=== PATIENT | male | born 2000 | race Caucasian/White ===

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

== ENCOUNTER 2019-11-05 14:01 | Emergency (ER) | payer OTHER ==
[~2019-11-05] VITALS: Ht 170.2 cm; Wt 88.0 kg
[2019-11-05] MEDS ORDERED: ACETAMINOPHEN 500 MG TABLET PO ONE (14:15)
[2019-11-05 14:18] VITALS: BP 133/70
--- NOTE | 2019-11-05 14:50 | RAD ---
PORTABLE CHEST 1V 11/05/2019 2:13 PM INDICATION: Fever, Covid COMPARISON: None available TECHNIQUE: Portable frontal view of the chest is provided. FINDINGS: The cardiomediastinal silhouette is within normal limits. Lungs are clear. There are no significant pleural effusions. There is no pulmonary vascular congestion. No pneumothorax. No suspicious osseous abnormality. IMPRESSION: There is no acute cardiopulmonary process. Electronically signed by: Leatha Wing MD (11/05/2019 2:47 PM) [facility]
--- NOTE | 2019-11-05 15:08 | PHYS DOC ---
Past Medical History Past Medical History: No Pertinent History Past Surgical History: No Surgical History Smoking Status: Current Every Day Smoker Alcohol Use: None Drug Use: None General Adult EDM: Chief Complaint: COUGH HPI: HPI: Patient is a 18 year old male who presents to the ED today concerned he has COVID19. Patient reports having a cough and sore throat for couple days. Patient reports he works at [employer], his temperature was taken multiple times and was reading at 101.8. He states he was given ice cubes to chew on and sent to urgent care. He states he went to urgent care he states they did a strep swab which was negative but they could not test him for COVID19 so they sent him to the ED. Patient reports living with the grandmother and very concerned about COVID19 and would like to be tested. Review of Systems: Review of Systems: Constitutional: Reports fever Eyes: Denies change in visual acuity. [] HENT: Reports sore throat. Denies nasal congestion Respiratory: Reports cough, denies shortness of breath. [] Cardiovascular: Denies chest pain or edema. [] GI: Denies abdominal pain, nausea, vomiting, bloody stools or diarrhea. [] : Denies dysuria. [] Musculoskeletal: Denies back pain or joint pain. [] Integument: Denies rash. [] Neurologic: Denies headache, focal weakness or sensory changes. [] Psychiatric: Denies depression or anxiety. [] Heart Score: Risk Factors: Risk Factors: DM, Current or recent (<one month) smoker, HTN, HLP, family history of CAD, obesity. Risk Scores: Score 0 - 3: 2.5% MACE over next 6 weeks - Discharge Home Score 4 - 6: 20.3% MACE over next 6 weeks - Admit for Clinical Observation Score 7 - 10: 72.7% MACE over next 6 weeks - Early Invasive Strategies Current Medications: Current Medications Medications (Trade) Dose Ordered Sig/Vannesa Start Time Stop Time Status Last Admin Dose Admin Acetaminophen (Tylenol) 1,000 mg 1X ONCE 11/05/19 14:15 11/05/19 14:18 DC 11/05/19 14:25 1,000 MG Allergies: Allergies: Allergies Coded Allergies Type Severity Reaction Last Updated Verified Penicillins Allergy Intermediate 09/16/15 Yes amoxicillin Allergy Intermediate 09/16/15 Yes ampicillin Allergy Intermediate 09/16/15 Yes Physical Exam: PE: Constitutional: Well developed, well nourished, no acute distress, non-toxic appearance. [] HENT: Normocephalic, atraumatic, bilateral external ears normal, oropharynx moist, no oral exudates, nose normal. [] Eyes: PERRLA, EOMI, conjunctiva normal, no discharge. [] Neck: Normal range of motion, no tenderness, supple, no stridor. [] Cardiovascular:Heart rate regular rhythm, no murmur [] Lungs & Thorax: Bilateral breath sounds clear to auscultation [] Abdomen: Bowel sounds normal, soft, no tenderness, no masses, no pulsatile masses. [] Skin: Warm, dry, no erythema, no rash. [] Back: No tenderness, no CVA tenderness. [] Extremities: No tenderness, no cyanosis, no clubbing, ROM intact, no edema. [] Neurologic: Alert and oriented X 3, normal motor function, normal sensory function, no focal deficits noted. [] Psychologic: Affect normal, judgement normal, mood normal. [] Current Patient Data: Vital Signs: Vital Signs Date Time Temp Pulse Resp B/P (MAP) Pulse Ox O2 Delivery O2 Flow Rate FiO2 11/05/19 14:18 98.8 77 18 133/70 (91) 98 Room Air 98.8 EKG: EKG: [] Radiology/Procedures: Radiology/Procedures: []PROCEDURE: PORTABLE CHEST 1V PORTABLE CHEST 1V 11/05/2019 2:13 PM INDICATION: Fever, Covid COMPARISON: None available TECHNIQUE: Portable frontal view of the chest is provided. FINDINGS: The cardiomediastinal silhouette is within normal limits. Lungs are clear. There are no significant pleural effusions. There is no pulmonary vascular congestion. No pneumothorax. No suspicious osseous abnormality. IMPRESSION: There is no acute cardiopulmonary process. Electronically signed by: Michael Wing MD (11/05/2019 2:47 PM) [facility] DICTATED and SIGNED BY: MICHAEL WING MD DATE: 11/05/19 1441 Course & Med Decision Making: Course & Med Decision Making Pertinent Labs and Imaging studies reviewed. (See chart for details) This is a 18-year-old male patient presented to the ED today with COVID19 concern. Patient also had a fever that was documented at work at 101.8, see HPI. He is also complaining of a sore throat. Negative rapid strep was done at urgent care. He is afebrile in the ED. Chest x-ray is negative. COVID19 testing was done. Recommended patient to be quarantined for 14 days. He will be called with his results. Jack Disclaimer: Jack Disclaimer: This electronic medical record was generated, in whole or in part, using a voice recognition dictation system. COVID-19 Patient Risks: Age 65 or older: No Sign of co-morbidity: No Exp to person + for COVID: No Exp to PUI: No Travel from affected area: No Lower respiratory symptoms: Yes Fever: Yes Other: No PPE Use: Full PPE with N95 mask or PAPR: Yes Departure Departure Impression: Primary Impression: Fever Qualified Codes: R50.9 - Fever, unspecified Additional Impressions: Pharyngitis, acute Qualified Codes: J02.9 - Acute pharyngitis, unspecified Cough Person under investigation for COVID-19 Disposition: 01 HOME, SELF-CARE Condition: STABLE Referrals: JIM LAW MD (PCP) follow up in 2 weeks Patient Instructions: Cough, Adult, [id number], Fever, Adult Additional Instructions: You were tested for COVID19. You will stay on quarantine for 14 days or until your test for COVID19 is negative. Please take Tylenol as needed for fever or pain. Your chest x-ray in the emergency room is negative for any acute findings. Follow-up with your own doctor in 2 weeks. Come back to the ED at any point symptoms worsen. Justicifation of Admission Dx: Justifications for Admission: Justification of Admission Dx: N/A FLOR YUEN SENIOR PORTFOLIO ANALYST Nov 05, 2019 15:08
== END 2019-11-05 15:15 ==
LOC: ER 14:01
DX: J02.9 Acute pharyngitis, unspecified (principal); Z20.828 Contact with and (suspected) exposure to other viral communicable diseases; R50.9 Fever, unspecified; R05 Cough; F17.200 Nicotine dependence, unspecified, uncomplicated; Z88.0 Allergy status to penicillin; Z88.1 Allergy status to other antibiotic agents
CPT/HCPCS: 36415; 71045; 99284; U0003

== ENCOUNTER 2020-07-02 18:31 | Emergency (ER) | payer OTHER ==
[~2020-07-02] VITALS: Ht 170.2 cm; Wt 80.3 kg
[2020-07-02 18:46] LABS: BILIRUBIN,URINE NEGATIVE (NEG); CLARITY,URINE CLEAR; COLOR,URINE YELLOW; NITRITE,URINE NEGATIVE (NEG); PH,URINE 6.5 (<5.0-8.0); PROTEIN,URINE NEGATIVE (NEG-TRACE)
[2020-07-02 18:54] LABS: BARBITURATES NEG (NEG); BENZODIAZEPINES NEG (NEG); CANNABINOIDS POS (NEG); COCAINE NEG (NEG); METHADONE NEG (NEG); OPIATES NEG (NEG); PHENCYCLIDINE NEG (NEG)
[2020-07-02 18:58] LABS: AMPHETAMINE/METHAMPHETAMINE NEG (NEG)
[2020-07-02 19:03] LABS: BACTERIA,URINE FEW /HPF (0-FEW)
--- NOTE | 2020-07-02 19:15 | ED.ADGEN ---
Past Medical History Past Medical History: No Pertinent History Past Surgical History: No Surgical History Smoking Status: Current Every Day Smoker Alcohol Use: None Drug Use: None General Adult EDM: Chief Complaint: MEDICAL CLEARANCE HPI: HPI: Patient is a 19 year old male coming in for medical clearance that he can go to [facility] rehab facility. Patient states he has been using chavo lucinogens heavily, such as mushrooms and LSD. Denies any other drug use other than marijuana. Last use 3 weeks ago. Did have a history of heavy alcohol use about 5 months ago where he drank heavily daily for about 2 months. Patient also states over the past week he has been having vomiting, initially was containing small bits of blood but then towards the end was having bright red blood in his emesis. Denies any coffee-ground emesis. Also been having diarrhea and occasional cough. Denies any fevers. Patient states he is taking psychiatric medications has been compliant on them. Denies any hallucinations now. Denies any SI or HI. He states that he has already called [facility] that they would accept him but he needed to go to his closest emergency room for medical clearance. Review of Systems: Review of Systems: All other systems within normal limits except for as noted in the HPI Allergies: Allergies: Allergies Coded Allergies Type Severity Reaction Last Updated Verified Penicillins Allergy Intermediate 09/16/15 Yes amoxicillin Allergy Intermediate 09/16/15 Yes ampicillin Allergy Intermediate 09/16/15 Yes Physical Exam: PE: Constitutional: Well developed, well nourished, no acute distress, non-toxic appearance. [] HENT: Normocephalic, atraumatic, bilateral external ears normal, nose normal. [] Eyes: PERRLA, conjunctiva normal, no discharge. [] Neck: No rigidity, supple, no stridor. [] Cardiovascular: Regular rate and rhythm, brisk cap refill [] Lungs & Thorax: Non labored symmetric respirations, no tachypnea or respiratory distress [] Abdomen: Soft, nondistended, mild epigastric tenderness without guarding or rebound. Skin: Warm, dry, no erythema, no rash. [] Back: Unremarkable Extremities: No deformities, range of motion grossly intact, no lower extremity edema [] Neurologic: Alert and oriented X 3, no focal deficits noted. [] Psychologic: Affect normal, judgement normal, mood normal. [] Current Patient Data: Labs: Laboratory Tests Test 07/02/20 18:38 07/02/20 19:25 07/02/20 19:30 Urine Collection Type Unknown Urine Color Yellow Urine Clarity Clear Urine pH 6.5 (<5.0-8.0) Urine Specific [place] 1.025 (1.000-1.030) Urine Protein Negative mg/dL (NEG-TRACE) Urine Glucose (UA) Negative mg/dL (NEG) Urine Ketones (Stick) Negative mg/dL (NEG) Urine Blood Negative (NEG) Urine Nitrite Negative (NEG) Urine Bilirubin Negative (NEG) Urine Urobilinogen Dipstick 1.0 mg/dL (0.2 mg/dL) Urine Leukocyte Esterase Negative (NEG) Urine RBC 1-2 /HPF (0-2) Urine WBC 1-4 /HPF (0-4) Urine Squamous Epithelial Cells Few /LPF Urine Bacteria Few /HPF (0-FEW) Urine Opiates Screen Neg (NEG) Urine Methadone Screen Neg (NEG) Urine Barbiturates Neg (NEG) Urine Phencyclidine Screen Neg (NEG) Urine Amphetamine/Methamphetamine Neg (NEG) Urine Benzodiazepines Screen Neg (NEG) Urine Cocaine Screen Neg (NEG) Urine Cannabinoids Screen Pos (NEG) Urine Ethyl Alcohol Neg (NEG) White Blood Count 9.1 x10^3/uL (4.0-11.0) Red Blood Count 5.14 x10^6/uL (4.30-5.70) Hemoglobin 16.0 g/dL (13.0-17.5) Hematocrit 46.8 % (39.0-53.0) Mean Corpuscular Volume 91 fL (79-100) Mean Corpuscular Hemoglobin 31 pg (25-35) Mean Corpuscular Hemoglobin Concent 34 g/dL (31-37) Red Cell Distribution Width 13.0 % (11.5-14.5) Platelet Count 238 x10^3/uL (140-400) Neutrophils (%) (Auto) 65 % (31-73) Lymphocytes (%) (Auto) 27 % (24-48) Monocytes (%) (Auto) 7 % (0-9) Eosinophils (%) (Auto) 1 % (0-3) Basophils (%) (Auto) 1 % (0-3) Neutrophils # (Auto) 5.9 x10^3/uL (1.8-7.7) Lymphocytes # (Auto) 2.4 x10^3/uL (1.0-4.8) Monocytes # (Auto) 0.6 x10^3/uL (0.0-1.1) Eosinophils # (Auto) 0.1 x10^3/uL (0.0-0.7) Basophils # (Auto) 0.1 x10^3/uL (0.0-0.2) Sodium Level 142 mmol/L (136-145) Potassium Level 3.6 mmol/L (3.5-5.1) Chloride Level 104 mmol/L (98-107) Carbon Dioxide Level 26 mmol/L (21-32) Anion Gap 12 (6-14) Blood Urea Nitrogen 13 mg/dL (8-26) Creatinine 1.0 mg/dL (0.7-1.3) Estimated GFR (Cockcroft-Gault) 95.3 BUN/Creatinine Ratio 13 (6-20) Glucose Level 104 mg/dL (70-99) H Calcium Level 9.4 mg/dL (8.5-10.1) Total Bilirubin 0.5 mg/dL (0.2-1.0) Aspartate Amino Transferase (AST) 21 U/L (15-37) Alanine Aminotransferase (ALT) 28 U/L (16-63) Alkaline Phosphatase 76 U/L (46-116) Total Protein 7.1 g/dL (6.4-8.2) Albumin 3.8 g/dL (3.4-5.0) Albumin/Globulin Ratio 1.2 (1.0-1.7) Lipase 358 U/L (73-393) SARS-CoV-2 Antigen (Rapid) Negative (NEGATIVE) Laboratory Tests 07/02/20 19:25 Laboratory Tests 07/02/20 19:25 Vital Signs: Vital Signs Date Time Temp Pulse Resp B/P (MAP) Pulse Ox O2 Delivery O2 Flow Rate FiO2 07/02/20 18:35 98.9 92 18 153/84 (107) 99 Room Air 98.9 EKG: EKG: [] Heart Score: Risk Factors: Risk Factors: DM, Current or recent (<one month) smoker, HTN, HLP, family history of CAD, obesity. Risk Scores: Score 0 - 3: 2.5% MACE over next 6 weeks - Discharge Home Score 4 - 6: 20.3% MACE over next 6 weeks - Admit for Clinical Observation Score 7 - 10: 72.7% MACE over next 6 weeks - Early Invasive Strategies Radiology/Procedures: Radiology/Procedures: Work-up unremarkable, medically cleared for rehab facility. Nurse called [facility] and gave nurse to nurse. Patient is able to present there in the morning by private vehicle with his paperwork for admission. [] Course & Med Decision Making: Course & Med Decision Making Pertinent Labs and Imaging studies reviewed. (See chart for details) [] Dragon Disclaimer: Dragon Disclaimer: This electronic medical record was generated, in whole or in part, using a voice recognition dictation system. Departure Departure Impression: Primary Impression: Medical clearance for psychiatric admission Disposition: 01 DC HOME SELF CARE/HOMELESS Condition: STABLE Referrals: JIM LAW MD (PCP) Patient Instructions: Alcohol and Drug Addiction, Finding Treatment Additional Instructions: Medically cleared for inpatient rehab DARYA MARQUEZ MD Jul 02, 2020 19:15
[2020-07-02 19:38] LABS: BASO # 0.1 x10^3/uL (0.0-0.2); BASO % 1 % (0-3); EOS # 0.1 x10^3/uL (0.0-0.7); EOS % 1 % (0-3); HEMATOCRIT 46.8 % (39.0-53.0); LYMPH # 2.4 x10^3/uL (1.0-4.8); LYMPH % 27 % (24-48); MEAN CORPUSCULAR HEMOGLOBIN 31 pg (25-35); MEAN CORPUSCULAR HGB CONC 34 g/dL (31-37); MEAN CORPUSCULAR VOLUME 91 fL (79-100); MONO # 0.6 x10^3/uL (0.0-1.1); MONO % 7 % (0-9); NEUT # 5.9 x10^3/uL (1.8-7.7); NEUT % 65 % (31-73); PLATELET COUNT 238 x10^3/uL (140-400); RED BLOOD COUNT 5.14 x10^6/uL (4.30-5.70); WHITE BLOOD COUNT 9.1 x10^3/uL (4.0-11.0)
--- NOTE | 2020-07-02 19:41 | RAD ---
INDICATION: Reason: hematemesis x1 week / Spl. Instructions: / History: COMPARISON: November 05, 2019 FINDINGS: 2 views of the chest obtained. No definite focal airspace consolidation. Cardiac silhouette is unremarkable. No gross osseous destru ctive lesion IMPRESSION: * No focal airspace consolidation or edema. Electronically signed by: Murali Duran MD (07/02/2020 7:38 PM) [id number]
[2020-07-02 19:49] LABS: CALCIUM 9.4 mg/dL (8.5-10.1); GFR 95.3; POTASSIUM 3.6 mmol/L (3.5-5.1)
[2020-07-02 19:54] LABS: ALBUMIN 3.8 g/dL (3.4-5.0); ALBUMIN/GLOBULIN RATIO 1.2 (1.0-1.7); TOTAL BILIRUBIN 0.5 mg/dL (0.2-1.0); TOTAL PROTEIN 7.1 g/dL (6.4-8.2)
[2020-07-02 21:26] VITALS: BP 144/80
== END 2020-07-02 21:30 | disposition home or self-care (01) ==
LOC: ER 18:31
DX: R11.2 Nausea with vomiting, unspecified (principal); Z20.822 Contact with and (suspected) exposure to COVID-19; R19.7 Diarrhea, unspecified; R05 Cough; F17.200 Nicotine dependence, unspecified, uncomplicated; Z88.0 Allergy status to penicillin; Z88.1 Allergy status to other antibiotic agents
CPT/HCPCS: 36415; 71046; 80053; 80307; 81001; 83690; 85025; 87426; 99285; C9803; U0003

== ENCOUNTER 2021-06-28 16:59 | Emergency (ER) | payer OTHER ==
[~2021-06-28] VITALS: Ht 162.6 cm; Wt 79.0 kg
[2021-06-28 18:03] LABS: BILIRUBIN,URINE NEGATIVE (NEG); CLARITY,URINE CLEAR; COLOR,URINE YELLOW; NITRITE,URINE NEGATIVE (NEG); PH,URINE 6.5 (<5.0-8.0); PROTEIN,URINE NEGATIVE (NEG-TRACE); UROBILINOGEN,URINE 0.2 mg/dL (0.2 mg/dL)
[2021-06-28 18:09] LABS: BARBITURATES NEG (NEG); BENZODIAZEPINES NEG (NEG); CANNABINOIDS POS (NEG); COCAINE NEG (NEG); METHADONE NEG (NEG); OPIATES NEG (NEG); PHENCYCLIDINE NEG (NEG)
[2021-06-28 18:10] LABS: AMPHETAMINE/METHAMPHETAMINE NEG (NEG)
[2021-06-28 18:17] LABS: BACTERIA,URINE FEW /HPF (0-FEW); RBC,URINE OCC /HPF (0-2)
[2021-06-28 18:31] LABS: BASO % 0 % (0-3); CALCIUM 8.9 mg/dL (8.5-10.1); CREATININE 0.8 mg/dL (0.7-1.3); EOS # 0.1 x10^3/uL (0.0-0.7); EOS % 0 % (0-3); HEMATOCRIT 47.3 % (39.0-53.0); HEMOGLOBIN 16.3 g/dL (13.0-17.5); LYMPH # 1.3 x10^3/uL (1.0-4.8); LYMPH % 8 % (24-48); MEAN CORPUSCULAR HEMOGLOBIN 31 pg (25-35); MEAN CORPUSCULAR HGB CONC 35 g/dL (31-37); MEAN CORPUSCULAR VOLUME 91 fL (79-100); MONO # 0.7 x10^3/uL (0.0-1.1); MONO % 4 % (0-9); NEUT # 14.5 x10^3/uL (1.8-7.7); NEUT % 87 % (31-73); PLATELET COUNT 258 x10^3/uL (140-400); POTASSIUM 3.5 mmol/L (3.5-5.1); RED BLOOD COUNT 5.22 x10^6/uL (4.30-5.70); RED CELL DISTRIBUTION WIDTH 13.6 % (11.5-14.5); WHITE BLOOD COUNT 16.6 x10^3/uL (4.0-11.0)
[2021-06-28 18:37] LABS: ALBUMIN/GLOBULIN RATIO 1.3 (1.0-1.7); TOTAL PROTEIN 7.1 g/dL (6.4-8.2)
[2021-06-28 19:04] LABS: % BANDS 1 % (0-9); % LYMPHS 11 % (24-48); % SEGS 84 % (35-66); PLT ESTIMATE ADEQUATE (ADEQUATE)
[2021-06-28 19:05] LABS: % MONOS 4 % (0-10)
[2021-06-28] MEDS ORDERED: KETOROLAC 60 MG/2 ML VIAL. IM ONE (19:45)
--- NOTE | 2021-06-28 20:18 | PHYS DOC ---
Past Medical History Past Medical History: Depression, Schizophrenia Additional Past Medical Histor: DRUG USE (SVETA SANCHEZ) Past Surgical History: Other Additional Past Surgical Histo: TUBES IN EARS A CHILD (SVETA SANCHEZ) Smoking Status: Never Smoker Alcohol Use: None Drug Use: Marijuana, Methamphetamine (SVETA SANCHEZ) General Adult EDM: Chief Complaint: PSYCH EVALUATION HPI: HPI: Patient is a 20 year old male who presents with his mother for psychiatric evaluation. Patient's current mental status makes it somewhat difficult to piece together history, but his mother at bedside aids in this. Per mom, patient has reported to her paranoid delusions and auditory hallucinations for a period of greater than 1 year. She states that he was evaluated at in 2019 and diagnosed with schizophrenia. At that time, he was given medications that included antipsychotics, antidepressants and a sleeping pill. She states the patient took these medications for about 1 month, but did not continue taking them. Among his paranoid delusions are the believe that he can telepathically here the thoughts of patrons of a liquor store across the street from his mother's house, whom he believes wish to shoot him. He also has commanding auditory hallucinations. Most recently, the patient states these voices told him to steal a gallon of milk from a gas station. After doing so, the voices commanded him to call the police on himself, which he also did. Mom states that the patient feels unsafe everywhere he goes, no matter who or who is not around. Patient recently has been walking a lot, somewhat aimlessly. Patient states that he "felt unsafe," so he ended up walking to [place], [place]. He then walked back to his mother's house from there. As a result, he has multiple blisters on the balls of his feet and his toes. Patient reports one episode of methamphetamine use 2 days ago (via inhalation). He reports the only other time he has used methamphetamine was for an entire day in 2019. Regarding other substance use, he only reports smoking marijuana. He reports that the hallucinations and delusions are more intense after methamphetamine use. Patient denies SI/HI and is seeking inpatient placement for psychiatric stabilization. (SVETA SANCHEZ) Review of Systems: Review of Systems: Constitutional: Denies fever, chills or generalized weakness Eyes: Denies change in visual acuity, visual field deficits or discharge HENT: Denies ear pain, nasal congestion or sore throat Respiratory: Denies cough or shortness of breath Cardiovascular: Denies chest pain, palpitations or edema GI: Denies abdominal pain, nausea, vomiting, bloody stools or diarrhea : Denies dysuria or hematuria Musculoskeletal: Denies back pain or joint pain Integument: See HPI Neurologic: Denies headache, focal weakness or sensory changes Psychiatric: See HPI (SVETA SANCHEZ) Heart Score: C/O Chest Pain: No (SVETA SANCHEZ) Current Medications: Current Medications Medications (Trade) Dose Ordered Sig/Vannesa Start Time Stop Time Status Last Admin Dose Admin Ketorolac Tromethamine (Toradol Im) 60 mg 1X ONCE 06/28/21 19:45 06/28/21 19:53 DC (SVETA SANCHEZ) Allergies: Allergies: Allergies Coded Allergies Type Severity Reaction Last Updated Verified Penicillins Allergy Intermediate 09/16/15 Yes amoxicillin Allergy Intermediate 09/16/15 Yes ampicillin Allergy Intermediate 09/16/15 Yes (SVETA SANCHEZ) Physical Exam: PE: Constitutional: Well developed, well nourished, no acute distress, non-toxic appearance. HENT: Normocephalic, atraumatic, bilateral external ears normal, nose normal. Eyes: PERRLA, EOMI, conjunctiva normal, no discharge. Neck: Normal range of motion, no stridor. Skin: Plantar aspect of the foot, especially on the ball of the foot and some toes, show friction blistering; some blisters have opened while some have rem ained intact, no drainage, necrotic tissue or surrounding erythema. Skin otherwise warm, dry, no erythema. Extremities: No tenderness, no cyanosis, no clubbing, ROM intact, no edema. Neurologic: Alert and oriented x4, no focal deficits noted. Psychologic: Affect hypervigilent,poor judgement, mood "I wanna get better." (SVETA SANCHEZ) Current Patient Data: Labs: Laboratory Tests Test 06/28/21 17:21 06/28/21 18:08 Urine Collection Type Unknown Urine Color Yellow Urine Clarity Clear Urine pH 6.5 (<5.0-8.0) Urine Specific [place] <=1.005 (1.000-1.030) Urine Protein Negative mg/dL (NEG-TRACE) Urine Glucose (UA) Negative mg/dL (NEG) Urine Ketones (Stick) 15 mg/dL (NEG) Urine Blood Negative (NEG) Urine Nitrite Negative (NEG) Urine Bilirubin Negative (NEG) Urine Urobilinogen Dipstick 0.2 mg/dL (0.2 mg/dL) Urine Leukocyte Esterase Negative (NEG) Urine RBC Occ /HPF (0-2) Urine WBC 1-4 /HPF (0-4) Urine Bacteria Few /HPF (0-FEW) Urine Opiates Screen Neg (NEG) Urine Methadone Screen Neg (NEG) Urine Barbiturates Neg (NEG) Urine Phencyclidine Screen Neg (NEG) Urine Amphetamine/Methamphetamine Neg (NEG) Urine Benzodiazepines Screen Neg (NEG) Urine Cocaine Screen Neg (NEG) Urine Cannabinoids Screen Pos (NEG) Urine Ethyl Alcohol Neg (NEG) White Blood Count 16.6 x10^3/uL (4.0-11.0) H Red Blood Count 5.22 x10^6/uL (4.30-5.70) Hemoglobin 16.3 g/dL (13.0-17.5) Hematocrit 47.3 % (39.0-53.0) Mean Corpuscular Volume 91 fL (79-100) Mean Corpuscular Hemoglobin 31 pg (25-35) Mean Corpuscular Hemoglobin Concent 35 g/dL (31-37) Red Cell Distribution Width 13.6 % (11.5-14.5) Platelet Count 258 x10^3/uL (140-400) Neutrophils (%) (Auto) 87 % (31-73) H Lymphocytes (%) (Auto) 8 % (24-48) L Monocytes (%) (Auto) 4 % (0-9) Eosinophils (%) (Auto) 0 % (0-3) Basophils (%) (Auto) 0 % (0-3) Neutrophils # (Auto) 14.5 x10^3/uL (1.8-7.7) H Lymphocytes # (Auto) 1.3 x10^3/uL (1.0-4.8) Monocytes # (Auto) 0.7 x10^3/uL (0.0-1.1) Eosinophils # (Auto) 0.1 x10^3/uL (0.0-0.7) Basophils # (Auto) 0.0 x10^3/uL (0.0-0.2) Segmented Neutrophils % 84 % (35-66) H Band Neutrophils % 1 % (0-9) Lymphocytes % 11 % (24-48) L Monocytes % 4 % (0-10) Platelet Estimate Adequate (ADEQUATE) Sodium Level 134 mmol/L (136-145) L Potassium Level 3.5 mmol/L (3.5-5.1) Chloride Level 97 mmol/L (98-107) L Carbon Dioxide Level 24 mmol/L (21-32) Anion Gap 13 (6-14) Blood Urea Nitrogen 16 mg/dL (8-26) Creatinine 0.8 mg/dL (0.7-1.3) Estimated GFR (Cockcroft-Gault) 122.0 BUN/Creatinine Ratio 20 (6-20) Glucose Level 102 mg/dL (70-99) H Calcium Level 8.9 mg/dL (8.5-10.1) Total Bilirubin 1.0 mg/dL (0.2-1.0) Aspartate Amino Transferase (AST) 38 U/L (15-37) H Alanine Aminotransferase (ALT) 33 U/L (16-63) Alkaline Phosphatase 88 U/L (46-116) Total Protein 7.1 g/dL (6.4-8.2) Albumin 4.0 g/dL (3.4-5.0) Albumin/Globulin Ratio 1.3 (1.0-1.7) Lipase 81 U/L (73-393) Laboratory Tests 06/28/21 18:08 Laboratory Tests 06/28/21 18:08 Vital Signs: Vital Signs Date Time Temp Pulse Resp B/P (MAP) Pulse Ox O2 Delivery O2 Flow Rate FiO2 06/28/21 17:28 98.4 117 16 138/81 (100) 100 Room Air 98.4 (SVETA SANCHEZ) Radiology/Procedures: Impression: [facility] [address] [place] [address] IMAGING REPORT Signed PATIENT: MARIE VINCENT ACCOUNT: [id number] : 2000 LOCATION: ER AGE: 20 SEX: M EXAM STATUS: REG ER ORD. PHYSICIAN: MICHAEL JOHNSON MD REASON: screening PROCEDURE: CHEST AP ONLY Study: XR CHEST 1V Indication: Screening. Comparison: 07/02/2020 Findings: No confluent airspace infiltrate, pleural effusion or pneumothorax. The aeration pattern of the lungs has not significantly changed. Nodular focus at the right lung base approaching the costophrenic angle is unchanged dating back to 11/05/2019 indicating a benign process such as a granuloma. Unremarkable cardiomed iastinal silhouette and ilana. Impression: No acute radiographic abnormality of the chest. No relevant change from the 07/02/2020 comparison. Electronically signed by: CRISTOBAL RIDER MD (06/28/2021 8:48 PM) [facility] DICTATED and SIGNED BY: CRISTOBAL RIDER MD DATE: 06/28/[id number] 0 (MICHAEL JOHNSNO MD) Course & Med Decision Making: Course & Med Decision Making Pertinent Labs and Imaging studies reviewed. (See chart for details) Patient is a 20-year-old male with history of schizophrenia and reported recent methamphetamine use who is presenting for psychiatric evaluation. Work-up today will include labs, urinalysis, urine drug screen, swabs for COVID-19. Psychiatric assessment team paged and Dk will be available within a few hours for evaluation. Patient remains anxious while in the department. Patient's mother left to go home to her younger son, who is 9 years old. She does express concern for where the patient will stay after his psychiatric stabilization. Mom states that because she has a young son at home, she does not feel comfortable having the patient in the house with his drug and psychiatric history. I informed her that after his initial assessment and stabilization on medication, that there will be resources available for him. While Dk is conducting his interview and assessment, patient care was transferred to Dr. Johnson. At that time, a screening chest x-ray was ordered secondary to patient's elevated white count on CBC. (SVETA SANCHEZ) Course & Med Decision Making Received report on this patient from MAY. Please see above documentation. Patient was initially tachycardic to 120s and WBC count was elevated to 120s. CXR was without infiltrate. UA negative for infection. No evidence of cellulitis on exam. COVID negative. Considered endocarditis, but patient denies ever using IV drugs (stating he only smokes meth). On exam he has no stigmata of endocarditis vascular phenomena and he has no murmur. He did have a single track marlo overlying a vein in his left AC. Given his lack of fever and overall well appearance bacteremia/endocarditis seems very unlikely, but blood cultures were added. Overnight he received IV and PO fluids and his HR normalized to the 80s. PAT team has seen the patient and is recommending inpatient psychiatric stay. At this time patient is medically cleared for psychiatric hospitalization. Will be signed out to [facility] pending placement. (MICHAEL JOHNSON MD) Dragon Disclaimer: Dragon Disclaimer: This electronic medical record was generated, in whole or in part, using a voice recognition dictation system. (SVETA SANCHEZ) Departure Departure Impression: Primary Impression: Schizophrenia Additional Impressions: Substance abuse Paranoid delusion Auditory hallucination Referrals: JIM LAW MD (PCP) SVETA SANCHEZ Jun 28, 2021 20:18 MICHAEL JOHNSON MD Jun 29, 2021 05:17
--- NOTE | 2021-06-28 20:50 | RAD ---
Study: XR CHEST 1V Indication: Screening. Comparison: 07/02/2020 Findings: No confluent airspace infiltrate, pleural effusion or pneumothorax. The aeration pattern of the lungs has not significantly changed. Nodular focus at the right lung base approaching the costophrenic ang le is unchanged dating back to 11/05/2019 indicating a benign process such as a granuloma. Unremarkable cardiomediastinal silhouette and ilana. Impression: No acute radiographic abnormality of the chest. No relevant change from the 07/02/2020 comparison. Electronically signed by: CRISTOBAL RIDER MD (06/28/2021 8:48 PM) [facility]
[2021-06-28] MEDS ORDERED: KETOROLAC 15 MG/ML VIAL. ONE (21:12)
[2021-06-28] MEDS ORDERED: KETOROLAC 15 MG/ML VIAL. IVP ONE ×2 (21:15→21:30)
[2021-06-28] MEDS ORDERED: IV NORMAL SALINE 1000ML BAG 1,000 ML IV ONE ×3 (21:30→23:45)
--- NOTE | 2021-06-29 02:03 | EKG ---
[facility] [address] [place] [address] Test Date: 2021-06-28 Test Time: 20:56:18 Pat Name: MARIE VINCENT Department: Room: Gender: M Digital Account Coordinator: : 2000 Requested By: SVETA SANCHEZ Order Number: [id number] Reading MD: Michael Monson Measurements Intervals [place] Rate: 126 P: -9 WV: 136 QRS: 11 QRSD: 84 T: 43 QT: 294 QTc: 426 Interpretive Statements SINUS TACHYCARDIA Electronically Signed On 06-30-2021 9:25:20 [employer] by Michael Monson
[2021-06-29 06:26] VITALS: BP 81/49
== END 2021-06-28 20:56 | disposition short-term general hospital (02) ==
LOC: ER 16:59
DX: F20.9 Schizophrenia, unspecified (principal); Z20.822 Contact with and (suspected) exposure to COVID-19; F19.10 Other psychoactive substance abuse, uncomplicated; F22 Delusional disorders; Z88.0 Allergy status to penicillin; Z88.1 Allergy status to other antibiotic agents
CPT/HCPCS: 36415; 71045; 80053; 80307; 81001; 83690; 85007; 85025; 87040; 87426; 93005; 96360; 96361; 99285; J7030; U0003; U0005